=== PATIENT | male | born 2000 | race Hispanic/Latino ===

== ENCOUNTER 2020-04-18 14:08 | Emergency (ER) | payer BC, OTHER ==
[~2020-04-18] VITALS: Ht 160 cm; Wt 88.6 kg
[2020-04-18] MEDS ORDERED: TETANUS/DIPHTHERIA TOX ADULT 0.5 ML SYR IM ONE (15:00)
[2020-04-18] MEDS ORDERED: TETANUS/DIPHTHERIA TOX ADULT 0.5 ML SYR ONE (15:15)
[2020-04-18] MEDS ORDERED: LIDOCAINE HCL 1% LOCAL INJ 20 ML VIAL ONE (15:15)
[2020-04-18] MEDS ORDERED: BACITRACIN ZINC 0.9GM TP ONE (15:16)
[2020-04-18] MEDS ORDERED: KEFLEX500 MG PO (15:47)
== END 2020-04-18 15:58 | disposition home or self-care (01) ==
LOC: FSED 15:54
DX: S61.217A Laceration without foreign body of left little finger without damage to nail, initial encounter (principal); W45.8XXA Other foreign body or object entering through skin, initial encounter; Y99.0 Civilian activity done for income or pay; F17.210 Nicotine dependence, cigarettes, uncomplicated
CPT/HCPCS: 12002; 73120; 90471; 90714; 96372; 99283; J2001